=== PATIENT | male | born 1995 | race Caucasian/White ===

== ENCOUNTER 2024-01-10 06:34 | Inpatient (IN) | payer SELFPAY ==
[2024-01-10] VITALS (29 sets, daily range): BP systolic 99–134; BP diastolic 48–86; PULSE 18–91; RESP 12–28; TEMP 36.5–36.8; O2SAT 95–100; BMI 21.8
--- NOTE | ~2024-01-10 | CT_ITS ---
EXAMINATION: CT HEAD WITHOUT CONTRAST CT CERVICAL SPINE WITHOUT CONTRAST CLINICAL INFORMATION: Altered mental status . Trauma. COMPARISON: None TECHNIQUE: Contiguous axial imaging was performed from the skull base to vertex without intravenous administration of contrast. Contiguous axial imaging was performed from the upper chest through the skull base without intravenous administration of contrast. Coronal and sagittal reformats were obtained at the acquisition workstation. This CT examination was performed using dose optimization techniques as appropriate, variously including the following: *Automated exposure control *Adjustment of mA and/or kV according to patient size (this includes techniques or standardized protocols for targeted exams where dose is matched to indication/reason for exam; i.e. extremities or head) *Use of iterative reconstruction technique DLP: 987 mGy-cm FINDINGS: Head: There is no evidence of acute intracranial hemorrhage or edematous territorial infarction. Padron-white matter differentiation appears preserved. The ventricles are normal in morphology and size. No evidence for obstructive hydrocephalus. No abnormal mass effect or midline shift. No extra-axial fluid collections. No acute soft tissue or osseous abnormalities. Minimal mucosal thickening of ethmoid air cells. Otherwise the visualized paranasal sinuses and mastoids are well-aerated. Cervical Spine: The atlantooccipital and atlantoaxial articulations remain well aligned. Normal cervical lordosis. Otherwise, there is anatomic alignment of the vertebral bodies and posterior elements. No evidence of acute fracture or subluxation. The vertebral body heights and disc spaces are maintained. There is no prevertebral soft tissue swelling. The thyroid gland and remaining cervical soft tissues are within normal limits. The lung apices demonstrate mild paraseptal emphysematous changes. CT/CT cervical spine wo IV con IMPRESSION: 1. No acute intracranial pathology. 2. No acute fracture or traumatic subluxation involving the cervical spine. Electronically signed by: Fernandez Mackenzie MD 01/10/2024 02:35 PM EDT
--- NOTE | ~2024-01-10 | CT_ITS ---
EXAMINATION: CT CHEST, ABDOMEN AND PELVIS WITHOUT CONTRAST CLINICAL INFORMATION: trauma COMPARISON: No pertinent prior studies are available for comparison. TECHNIQUE: Multidetector volumetric imaging was performed from the thoracic inlet through the pubic symphysis without IV contrast. Sagittal and coronal reformatted images were obtained on the technologist's workstation. This CT examination was performed using dose optimization techniques as appropriate, variously including the following: *Automated exposure control *Adjustment of mA and/or kV according to patient size (this includes techniques or standardized protocols for targeted exams where dose is matched to indication/reason for exam; i.e. extremities or head) *Use of iterative reconstruction technique DLP: 281 plus 619 mGy-cm FINDINGS: CHEST: Lung: The lungs are clear without focal opacity or nodule. Mediastinum: The mediastinum is normal. Residual thymic tissue is present in the anterior mediastinum. The central vascular structures are unremarkable. No hilar or mediastinal lymphadenopathy. Pericardium/Pleura: No significant effusion. No pleural mass or thickening. Coronary artery calcium: None Chest Wall/Axilla: Unremarkable ABDOMEN/PELVIS: Peritoneal Space: No significant free air or free fluid identified. Liver, Gallbladder, Biliary Tree: The liver is normal in size, shape, and attenuation. No focal hepatic lesion or biliary ductal dilatation is present. The gallbladder is unremarkable with no evidence of radiopaque gallstones, gallbladder wall thickening, or obvious pericholecystic inflammatory changes. Pancreas: Unremarkable Spleen: Unremarkable Adrenal Glands: Unremarkable Kidneys and Ureters: The kidneys are normal in size, shape, and attenuation. No hydronephrosis, hydroureter, or calculi seen. No perinephric stranding. Bladder: Unremarkable Gastrointestinal Tract: The small and large bowel are unremarkable. The appendix is not identified but there is no evidence of appendicitis. Abdominal Wall: No significant hernia is appreciated. Lymph Nodes: No large adenopathy, but the exam is limited by lack of oral contrast, IV contrast and retroperitoneal fat. Vascular: The aorta appears normal.. The IVC appears unremarkable. PELVIC VISCERA: The prostate and seminal vesicles are unremarkable. OSSEUS STRUCTURES: Unremarkable without evidence of traumatic osseous injury. CT/CT abdomen pelvis wo IV con IMPRESSION: No evidence of traumatic injury in the chest, abdomen or pelvis. Fleischner guidelines were followed. Electronically signed by: Pedro Luis Chopra MD 01/10/2024 03:03 PM EDT RP
[2024-01-10] MEDS: Haloperidol Lactate 5 MG/ML VIAL 10 MG IM (06:40)
[2024-01-10] MEDS: LORazepam 2 MG/ML VIAL 4 MG IM (06:40)
--- NOTE | 2024-01-10 06:53 | PC.NURSE ---
Medicated @ 0640 and placed into physical restraints by security. Pt moved into room 2.
--- NOTE | 2024-01-10 07:04 | ED_ITS ---
HPI - General Adult General Chief complaint: ETOH/Substance Use Stated complaint: drug use Time Seen by Provider: 01/10/24 06:36 Source: EMS and police Mode of arrival: EMS Limitations: altered mental status History of Present Illness ED Provider: Dr. Garcia HPI narrative: Patients roommate called and police and EMS found the patient agitated and thrashing Onset (ago): unknown Related Data Allergies Allergy/AdvReac Type Severity Reaction Status Date / Time No Known Allergies Allergy Verified 01/10/24 06:43 Review of Systems Review of Systems: Yes all other systems are reviewed and are negative Neurologic: Denies Sensory deficit (Neuro) Physical Exam ED Vital Signs: Vital Signs - 24 hr 01/10/24 06:43 Pulse Rate 18 L BMI result Body Mass Index 21.8 Const Other: Cachectic male unkept, agitated thrashing Limitations: altered mental status HENMT Head: Yes normal to inspection Ears: external ears normal General nose exam: Normal external nose present Mouth: Normal oral and palatal mucosa present and oropharynx normal Throat: Yes posterior oropharynx normal Eyes General: appearance normal, both eyes and all related structures Neck Neck: Yes normal visual inspection Chest Chest palpation & inspection: normal inspection of the chest Resp Auscultation: clear to auscultation bilaterally Cardio Other: tachycardia Jugular venous distension: no JVD Rate: regular rate Rhythm: regular rhythm Heart sounds: S1 normal heart sound present and S2 normal heart sound present GI Inspection: Yes normal to inspection Palpation (GI): Soft to palpation, nontender and No hepatosplenomegaly present Auscultation: normal bowel sounds General: Yes no CVA tenderness Back/Spine/Pelvis Back: no CVA tenderness Skin General skin exam: no rashes or lesions noted Neuro Cranial nerves: Yes CN's II-XII intact bilaterally Motor exam (neuro): 5/5 motor strength present throughout Sensory Exam: No Sensory deficit (Neuro) Extrem General: Yes normal to inspection Psych Other: altered thrashing Course Reevaluation(s) Reevaluation #1: upon arrival patient had a face to face, altered agitated swinging arms and legs, threat to himself and others Time: 07:09 Reevaluation #2: I re evaluated the patient and he needs to remain in restraints as he is still a threat to self and others Time: 07:22 Reevaluation #3: I spent 40 minutes of critical care, with interventions, assessments, speaking to patient, consultants, and family. Time: 07:25 Medications Administered Discontinued Medications Generic Name Dose Route Start Last Admin Trade Name Ashanti PRN Reason Stop Dose Admin Haloperidol Lactate 10 mg 01/10/24 06:37 01/10/24 06:40 Haloperidol Lactate 5 Mg/Ml Vial IM 01/10/24 06:38 10 mg STAT STA Administration Lorazepam 4 mg 01/10/24 06:37 01/10/24 06:40 Lorazepam 2 Mg/Ml Vial IM 01/10/24 06:38 4 mg STAT STA Administration Medical Decision Making Differential Diagnosis Differential Diagnoses: The differential diagnosis associated with the presentation includes (polysubstance abuse, intoxicated, agitation) Admission/Observation Consideration of admission/observation: Escalation of care including admission/observation considered (upon arrival patient considered for admission) Independent Historian Clinical information obtained from an independent historian. History obtained from or confirmed by: EMS and Other (police) Tests considered The following testing was considered but not selected: CT of brain: his level of consciousness is felt to be secondary to his drug abuse Social Determinants Patient?s care significantly limited by Social Determinants of Health including: Low income and Alcoholism and drug addiction in family Discharge Plan Discharge Clinical Impression: Polysubstance abuse, Agitation Patient Disposition: Still a Patient Print Language: Belarusian
[2024-01-10] MEDS: droPERidol 5 MG/2 ML VIAL 2.5 MG IM (08:25)
[2024-01-10] MEDS: LORazepam 2 MG/ML VIAL IM (08:25)
[2024-01-10] MEDS: diphenhydrAMINE HCL 50 MG/ML VIAL IM (08:25)
[2024-01-10] MEDS: Ketamine HCl 500 MG/5 ML VIAL 244.94 MG IM (10:25)
[2024-01-10] MEDS: 0.9 % Sodium Chloride 1,000 ML 999 ML IVCONT ×2 (10:39→12:09)
--- NOTE | 2024-01-10 10:39 | PC.NURSE ---
IV/labs able to be obtained. IV fluid hung.
[2024-01-10 10:42] LABS: MANUAL DIFF FLAG NO
[2024-01-10 10:44] LABS: Basophils Percent Auto 0.1 % (0-2); Hematocrit 42.2 % (42.0-52.0); Hemoglobin 14.3 g/dl (14.0-18.0); Imm Gran Abs Auto 0.02 X10*3/uL (0.00-0.03); Imm Gran Pct Auto 0.3 % (0.0-0.4); Lymphocytes Percent Auto 13.4 % (20-40); Mean Corpuscular HGB Conc 33.9 g/dl (31.0-36.0); Mean Corpuscular Hemoglobin 27.9 pg (27.0-33.0); Mean Corpuscular Volume 82.4 fL (80.0-98.0); Mean Platelet Volume 9.6 fL (9.4-12.4); Monocytes Absolute Auto 0.7 X10*3/uL (0.1-1.2); Monocytes Percent Auto 8.8 % (2-11); Neutrophils Absolute Auto 5.9 x10*3/uL (2.0-8.3); Neutrophils Percent Auto 77.4 % (45-73); Platelet Count 159 X10*3/uL (160-400); Red Blood Count 5.12 X10*6/uL (4.60-5.80); Red Cell Distribution Width 13.4 % (11.0-16.0); White Blood Count 7.6 X10*3/uL (4.8-10.8)
--- NOTE | 2024-01-10 10:48 | PC.NURSE ---
Pt straight catheterized for urine sample, pt must of been incontinent prior to straight cath - no urine output.
--- NOTE | 2024-01-10 10:56 | MHC.EDTECH ---
All Belonging are locked in [place] 15 Minute check is still ongoing plan of care ongoing
[2024-01-10 10:57] LABS: Ethanol < 10 mg/dL
[2024-01-10 11:06] LABS: Alanine Aminotransferase 63 U/L (0-40); Albumin Level 4.4 g/dL (3.5-5.0); Alkaline Phosphatase 65 U/L (39-117); Anion Gap 11 (12-20); Aspartate Amino Transferase 117 U/L (5-37); Bilirubin Total 0.7 mg/dL (0.0-1.0); Blood Urea Nitrogen 12 mg/dL (9-16); Calcium 9.4 mg/dL (8.4-10.2); Carbon Dioxide 24 mmol/L (22-29); Chloride 109 mmol/L (96-108); Creatinine Clr Calc Pharmacy 124.3; Estimated Glomerular Filt Rate > 60; Glucose Random 107 mg/dL (60-115); Potassium 3.2 mmol/L (3.3-5.1); Sodium 141 mmol/L (135-145); Total Protein 7.5 g/dL (6.5-8.0)
--- NOTE | 2024-01-10 11:57 | PC.NURSE ---
Pt taken to CT with RN escort.
[2024-01-10] MEDS: 0.9 % Sodium Chloride 1,000 ML 999 ML IV (13:37)
--- NOTE | 2024-01-10 15:31 | P.HPHOSP_ITS ---
History of Present Illness Date of Service: 01/10/24 Chief Complaint: Altered mental status A 28-year-old male with no known past medical history was found unresponsive in an apartment in [place], suspected of overdosing. EMS administered Narcan, after which the patient regained consciousness but became erratic, agitated, and combative. Upon arrival at the ED, he required sedation with Benadryl 50mg, Haldol 15 mh, droperidol 2.5 mg, Ativan 6 mg, and eventually ketamine 244 mg. He is currently somnolent but was briefly rousable with a sternal rub, providing his name and confirming he's from [place], though he was unable to give further details. Efforts to collect a urine sample were unsuccessful as he has been incontinent, and a subsequent bladder scan showed an empty bladder. Labs are notable for rhabdomyolysis with a CPK > 5000 and hypokalemia (K+ 3.2), negative alcohol Review of Systems 2 Review of Systems: Yes Unobtainable due to mental status PMFSH Social History Advance Directives: No Advance Directives Information Provided: No Meds Allergies Allergy/AdvReac Type Severity Reaction Status Date / Time No Known Allergies Allergy Verified 01/10/24 06:43 Physical Exam 2 Vital Signs and Narrative: Vital Signs: Last Vital Signs Pulse 48 L 01/10/24 15:04 Resp 17 01/10/24 15:04 BP 125/81 01/10/24 15:04 Pulse Ox 98 01/10/24 15:04 O2 Del Method Room Air 01/10/24 15:04 BMI result Body Mass Index 21.8 Const: Other: General: somnolent, aroused with , no acute distress Resp: CTA bilateral CVS: S1,S2,RRR GI: +BS, NT, no distention Skin: No rash Neuro: motor grossly intact Psych: appropriate affect Results Labs 01/10/24 10:37 01/10/24 10:37 Labs: Laboratory Results - last 24 hr 01/10/24 01/10/24 10:37 14:45 MCV 82.4 MCH 27.9 MCHC 33.9 RDW 13.4 Plt Count 159 L MPV 9.6 Immature Gran % (Auto) 0.3 Neut % (Auto) 77.4 H Lymph % (Auto) 13.4 L [place] % (Auto) 8.8 Eos % (Auto) 0.0 Baso % (Auto) 0.1 Lymph # (Auto) 1.0 L [place] # (Auto) 0.7 Eos # (Auto) 0.0 Baso # (Auto) 0.0 Abs Immat Gran (auto) 0.02 Absolute Neuts (auto) 5.9 Absolute Nucleated RBC 0.000 Nucleated RBC % (auto) 0.0 Anion Gap 11 L Estim Creat Clear Calc 124.3 Estimated GFR > 60 Random Glucose 107 Calcium 9.4 Total Bilirubin 0.7 AST 117 H ALT 63 H Alkaline Phosphatase 65 Total Creatine Kinase 4862 H 5628 H Total Protein 7.5 Albumin 4.4 Ethyl Alcohol < 10 Imaging Radiologist's Impressions: Impressions Abdomen/Pelvis CT 01/10/24 11:51 IMPRESSION: No evidence of traumatic injury in the chest, abdomen or pelvis. Fleischner guidelines were followed. Electronically signed by: Pedro Luis Chopra MD 01/10/2024 03:03 PM EDT RP Cervical Spine CT 01/10/24 11:51 IMPRESSION: 1. No acute intracranial pathology. 2. No acute fracture or traumatic subluxation involving the cervical spine. Electronically signed by: Fernandez Mackenzie MD 01/10/2024 02:35 PM EDT RP Chest CT 01/10/24 11:51 IMPRESSION: No evidence of traumatic injury in the chest, abdomen or pelvis. Fleischner guidelines were followed. Electronically signed by: Pedro Luis Chopra MD 01/10/2024 03:03 PM EDT RP Head CT 01/10/24 11:51 IMPRESSION: 1. No acute intracranial pathology. 2. No acute fracture or traumatic subluxation involving the cervical spine. Electronically signed by: Fernandez Mackenzie MD 01/10/2024 02:35 PM EDT RP Assessment and Plan (1) Rhabdomyolysis: Status: Acute (2) Agitation: Status: Acute (3) Polysubstance abuse: Status: Acute Plan 28/m with altered mental status presumably d/t drug od, now with Delirium--d/t toxic ingestion -urine drug screen -will need addiction med consult Rhabdomylosis-d/t prolonged down time -IVF, and monitor BMP Transaminitis--check hep panel Hypokalemia--mild replace with IVF k dvt prophylaxis--low riks regular diet full code Quality Stroke Does the patient have a stroke diagnosis?: No VTE Prior VTE?: No VTE Risk Level:: Medical - low VTE Device Contraindication: Treatment Not Indicated VTE Drug Contraindication: Treatment Not Indicated
[2024-01-10] MEDS: KCl 20 mEq in 5% Dex/0.45% Sod 20 MEQ/1,000 ML IV.SOLN 150 MEQ IVCONT (16:34)
--- NOTE | 2024-01-10 16:44 | MHC.EDTECH ---
This pct assumed care of Patient at 1500 ,vitals taken ,Patient belongings list done ,Patient sleeping ,1 :1 sitter at bedside ,Patient sleeping ,all safety measure in place ,Plan of care continue .
--- NOTE | 2024-01-10 19:48 | MHC.EDTECH ---
1999 ,Rounding done ,Patient was awake for a few minutes and refused dinner ,Fell back asleep ,1: 1 sitter continue to be at bedside .Plan of care continue .
--- NOTE | 2024-01-10 20:45 | MHC.EDTECH ---
Patient awake void 1000 ml in urinal ,urine sample collected and sent to lab .
[2024-01-10 20:46] LABS: Amphetamine Screen Urine Not Detected (Not Detect); Barbiturates, Urine Not Detected (Not Detect); Benzodiazepines Screen Urine POSITIVE (Not Detect); Buprenorphine Scr Not Detected (Not Detect); Cannabinoid Screen Urine POSITIVE (Not Detect); Cocaine Screen Urine POSITIVE (Not Detect); Fentanyl, urine POSITIVE (Not Detect); Methadone Screen, Urine Not Detected (Not Detect); Opiate Screen Urine POSITIVE (Not Detect); Oxycodone Screen Urine Not Detected (Not Detect); Phencyclidine Screen Urine Not Detected (Not Detect)
--- NOTE | 2024-01-10 21:43 | HE.PHANOTE ---
RE: MED REC Tried to talk to patient multiple times but he was sleeping with blanket over his head. Leaving note for morning med rec team to follow up.
[2024-01-11] VITALS: BP 121/68; PULSE 83; RESP 16; TEMP 37.8; O2SAT 98
[2024-01-11] MEDS: KCl 20 mEq in 5% Dex/0.45% Sod 20 MEQ/1,000 ML IV.SOLN 150 MEQ IVCONT (00:39)
--- NOTE | 2024-01-11 01:05 | MHC.EDTECH ---
Patient woke up agitated ,wanted to go home ,food and drinks given ,RN aware of Patient wanting to go home .
[2024-01-11] MEDS: LORazepam 2 MG/ML VIAL IVPUSH (01:16)
[2024-01-11 04:00] VITALS: BP 97/64; PULSE 64; RESP 20; TEMP 37.1; O2SAT 98
[2024-01-11 04:49] LABS: Anion Gap 9 (12-20); Blood Urea Nitrogen 7 mg/dL (9-16); Calcium 8.7 mg/dL (8.4-10.2); Carbon Dioxide 22 mmol/L (22-29); Chloride 111 mmol/L (96-108); Estimated Glomerular Filt Rate > 60; Glucose Random 112 mg/dL (60-115); Potassium 3.6 mmol/L (3.3-5.1); Sodium 138 mmol/L (135-145)
--- NOTE | 2024-01-11 05:02 | PC.NURSE ---
Patient agitated and ripped out IV line. notified. MD also notified that patient wants to leave at this time. MD approved patient to sign AMA form and leave.
[2024-01-11 05:12] LABS: HBS Num1 62.76 mIU/mL (0-7.99); HBc Num1 0.22 S/CO (0.00-0.79); HBsAGNum1 0.26 S/CO (0.00-0.99); Hepatitis B Core Antibody Nonreactive (Nonreactive); Hepatitis B Surface Antigen Negative (Negative); ~HepC Num1 18.07 S/CO (0.00-0.79); ~Hepatitis B Surface Antibody REACTIVE (Nonreactive); ~Hepatitis C Antibody Reactive (Nonreactive)
[2024-01-11 05:34] VITALS: BP 0/0; PULSE 0; RESP 0; TEMP -17.7; TEMP 0
--- NOTE | 2024-01-11 06:25 | PM.EVENT ---
Event Note Date of Service: 01/11/24 Event Note: Was informed by the nurse that patient left against medical advice. He was awake, alert and oriented x4 and understood the risks of leaving including renal failure and/or . Time Spent With Patient Time: Total time managing care of this patient today ____ minutes.
--- NOTE | 2024-01-11 07:29 | PM.DS ---
DS: Providers Provider Date of Service: 01/11/24 Date of admission: 01/10/24 16:26 Date of discharge: 01/11/24 Primary care physician: Liane Physician Consults: 01/10/24 16:29 Addiction Medicine Routine Consulting Provider: Addiction Covering Reason for consultation: polysubstance abuse DS: Diagnosis Discharge Diagnosis (1) Rhabdomyolysis: Status: Acute (2) Agitation: Status: Acute (3) Polysubstance abuse: Status: Acute DS: Summary Hospital Course Hospital Course: Chief Complaint: Altered mental status A 28-year-old male with no known past medical history was found unresponsive in an apartment in [place], suspected of overdosing. EMS administered Narcan, after which the patient regained consciousness but became erratic, agitated, and combative. Upon arrival at the ED, he required sedation with Benadryl 50mg, Haldol 15 mh, droperidol 2.5 mg, Ativan 6 mg, and eventually ketamine 244 mg. He is currently somnolent but was briefly rousable with a sternal rub, providing his name and confirming he's from [place], though he was unable to give further details. Efforts to collect a urine sample were unsuccessful as he has been incontinent, and a subsequent bladder scan showed an empty bladder. Labs are notable for rhabdomyolysis with a CPK > 5000 and hypokalemia (K+ 3.2), negative alcohol Hospital course: He presented with overdose and became very agitated after narcan and requried heavy sedation as above. Drug screen was positive for opioid, fentanyl, marijuana, cocaine and benzos. Labs showed high CPK consistent with rhabdomylsis. He was admitted for further management but left early this morning against medical advise--I was not present at that time.. see addicational documentation elsewhere Final diagnoses: Delirium Polysubstance drug overdose Acute rhabdomylosis opioid dependence Time Attestation Discharge Coordination Time (in mins): 20 Quality: Safe Use of Opioids Does Pt have an Active Cancer Diagnosis on the Problem List?: No Quality: Stroke Does the patient have a stroke diagnosis?: No Physical Exam Vital Signs: Vital Signs: Last Vital Signs Temp 0 F L 01/11/24 05:34 Pulse 0 L 01/11/24 05:34 Resp 0 L 01/11/24 05:34 BP 0/0 L 01/11/24 05:34 Pulse Ox 98 01/11/24 04:00 O2 Del Method Room Air 01/11/24 04:00 BMI result Body Mass Index 21.8 DS: Data Data Completed and Pending Labs on day of discharge: Laboratory Results - last 24 hr 01/10/24 01/10/24 01/10/24 10:37 14:45 20:27 WBC 7.6 RBC 5.12 Hgb 14.3 Hct 42.2 MCV 82.4 MCH 27.9 MCHC 33.9 RDW 13.4 Plt Count 159 L MPV 9.6 Immature Gran % (Auto) 0.3 Neut % (Auto) 77.4 H Lymph % (Auto) 13.4 L [place] % (Auto) 8.8 Eos % (Auto) 0.0 Baso % (Auto) 0.1 Lymph # (Auto) 1.0 L [place] # (Auto) 0.7 Eos # (Auto) 0.0 Baso # (Auto) 0.0 Abs Immat Gran (auto) 0.02 Absolute Neuts (auto) 5.9 Absolute Nucleated RBC 0.000 Nucleated RBC % (auto) 0.0 Sodium 141 Potassium 3.2 L Chloride 109 H Carbon Dioxide 24 Anion Gap 11 L BUN 12 Creatinine 0.78 Estim Creat Clear Calc 124.3 Estimated GFR > 60 Random Glucose 107 Calcium 9.4 Total Bilirubin 0.7 AST 117 H ALT 63 H Alkaline Phosphatase 65 Total Creatine Kinase 4862 H 5628 H Total Protein 7.5 Albumin 4.4 Urine Opiates Screen POSITIVE H Ur Buprenorphine Scrn Not Detected Ur Oxycodone Screen Not Detected Urine Methadone Screen Not Detected Urine Fentanyl Screen POSITIVE H Ur Barbiturates Screen Not Detected Ur Phencyclidine Scrn Not Detected Ur Amphetamines Screen Not Detected U Benzodiazepines Scrn POSITIVE H Urine Cocaine Screen POSITIVE H U Marijuana (THC) Screen POSITIVE H Ethyl Alcohol < 10 Hep Bs Antigen Hep Bs Antibody Hep B Core Total Ab Hepatitis C Ab (EIA) 01/11/24 03:53 WBC RBC Hgb Hct MCV MCH MCHC RDW Plt Count MPV Immature Gran % (Auto) Neut % (Auto) Lymph % (Auto) [place] % (Auto) Eos % (Auto) Baso % (Auto) Lymph # (Auto) [place] # (Auto) Eos # (Auto) Baso # (Auto) Abs Immat Gran (auto) Absolute Neuts (auto) Absolute Nucleated RBC Nucleated RBC % (auto) Sodium 138 Potassium 3.6 Chloride 111 H Carbon Dioxide 22 Anion Gap 9 L BUN 7 L Creatinine 0.74 Estim Creat Clear Calc 131.0 Estimated GFR > 60 Random Glucose 112 Calcium 8.7 D Total Bilirubin AST ALT Alkaline Phosphatase Total Creatine Kinase Total Protein Albumin Urine Opiates Screen Ur Buprenorphine Scrn Ur Oxycodone Screen Urine Methadone Screen Urine Fentanyl Screen Ur Barbiturates Screen Ur Phencyclidine Scrn Ur Amphetamines Screen U Benzodiazepines Scrn Urine Cocaine Screen U Marijuana (THC) Screen Ethyl Alcohol Hep Bs Antigen Negative Hep Bs Antibody REACTIVE Hep B Core Total Ab Nonreactive Hepatitis C Ab (EIA) Reactive H Discharge Plan Discharge Patient Disposition: Left Against Medical Advice Discharge Diagnosis: Polysubstance overdose, delirium, rhabdomylosis Referrals: Physician,Unknown J [Primary Care Provider] - 1 Week Discharge Orders: Discharge Order (Routine); Ordered 01/11/24 Ordered By: Isaac Damon Stand Alone Forms: Against Medical Advice Print Language: Slovenian Care Plan Goals: abstinence from drugs Health Concerns: polysbustance abuse Plan of Treatment: left ama Assessment: left ama
--- NOTE | 2024-01-11 09:02 | MHC.CM.PN ---
PT LEFT AMA PRIOR TO BEING SEEN BY CM
== END 2024-01-11 16:45 | disposition left against medical advice (07) | DRG 918 ==
LOC: HO.ED 11:43 → HO.EDOVER 16:33
PROVIDERS: Emergency Medicine; Admitting Provider Internal Medicine; Emergency Provider Student in an Organized Health Care Education/Training Program; Visit Provider Internal Medicine
DX: T50.911A Poisoning by multiple unspecified drugs, medicaments and biological substances, accidental (unintentional), initial encounter (principal); M62.82 Rhabdomyolysis; F11.20 Opioid dependence, uncomplicated; F05 Delirium due to known physiological condition; F19.10 Other psychoactive substance abuse, uncomplicated; E87.6 Hypokalemia
CPT/HCPCS: 36415; 70450; 71250; 72125; 74176; 80048; 80053; 80307; 82550; 85025; 86704; 86706; 86803; 87340; 92950; 99285; J1200; J1630; J1790; J2060; J3480

== ENCOUNTER → 2024-01-10 10:02 | Outpatient (BNV) | payer SELFPAY | PROVIDERS: Emergency Provider Student in an Organized Health Care Education/Training Program; Visit Provider Internal Medicine | DX: M62.82 Rhabdomyolysis (principal); R45.1 Restlessness and agitation; F19.10 Other psychoactive substance abuse, uncomplicated; Z53.29 Procedure and treatment not carried out because of patient's decision for other reasons | CPT/HCPCS: 99223; 99238 ==

== ENCOUNTER 2024-01-14 09:21 | Emergency (ER) | payer SELFPAY ==
[2024-01-14 09:57] VITALS: BP 110/64; PULSE 62; RESP 16; TEMP 36; O2SAT 100; BMI 22.6
--- NOTE | 2024-01-14 16:29 | ED_ITS ---
HPI - General Adult General Chief complaint: General Medical Stated complaint: Medical clearance Time Seen by Provider: 01/14/24 16:29 Source: patient, RN notes reviewed and old records reviewed Mode of arrival: ambulatory History of Present Illness ED Provider: Niki Latham PA-C [facility] narrative: 28-year-old male with past medical history of polysubstance abuse, recently admitted to our facility on 01/09 s/p toxic ingestion and rhabdomyolysis, left AMA on 01/10, presenting to the ED for work clearance. States his job requires a letter stating he go back to work. Denies symptoms at present, denies EtOH or drug use. Denies abdominal pain, nausea/vomiting, dysuria/hematuria, discolored urine, CP/SOB. Related Data Allergies Allergy/AdvReac Type Severity Reaction Status Date / Time No Known Allergies Allergy Verified 01/14/24 09:58 Review of Systems 2 Review of Systems: Yes all other systems are reviewed and are negative Constitutional: Constitutional: Reports as per [facility] Past Medical History Attestation statement: The following information was validated with the patient. Source: old records reviewed Social History Social History Advance Directives: No Advance Directives Information Provided: No Physical Exam ED Vital Signs: Vital Signs - 24 hr 01/14/24 09:57 01/14/24 17:53 Temperature 96.8 F 98.3 F Pulse Rate 62 61 Respiratory Rate 16 18 Blood Pressure 110/64 107/63 Pulse Oximetry 100 100 Oxygen Delivery Method Room Air Room Air BMI result Body Mass Index 22.6 Const General: cooperative, healthy appearing and no acute distress Orientation/consciousness: patient oriented x3 Limitations: no limitations HENMT Head: Yes normal to inspection and Yes atraumatic Ears: hearing grossly normal bilaterally General nose exam: Normal external nose present Face and sinus: Yes normal facial exam Eyes General: appearance normal, both eyes and all related structures EOM: EOMs intact bilaterally Neck Neck: Yes normal visual inspection and Yes no meningeal signs Resp Effort & Inspection: normal respiratory effort and no respiratory distress Auscultation: clear to auscultation bilaterally Cardio Rate: regular rate Heart sounds: S1 normal heart sound present and S2 normal heart sound present GI Inspection: Yes normal to inspection Palpation (GI): Soft to palpation, nontender, no guarding and not rigid Skin Rashes: no rashes Wounds: no wounds Neuro General: patient oriented x3, tone normal and no meningeal signs Cranial nerves: Yes CN's II-XII intact bilaterally Gait exam (Neuro): Normal gait present Extrem General: Yes normal to inspection Course Course Course Narrative: -mild improvement in transaminitis -CPK still elevated however improved from prior, down from 7,253 on 01/10 to now 2,581 >> discussed with patient continued rhabdomyolysis. Recommend he stays extremely hydrated. Recommended admission for IVF however patient declined. Patient aware of risks of RODOLFO/renal failure and -tox screen positive for opiates, fentanyl, cocaine, marijuana -COVID-19 positive > will not be cleared to return to work at this time Results discussed with patient including worrisome signs and symptoms and strict return precautions, and when to return to the emergency department. They verbalized understanding and feel safe for discharge at this time. Medical Decision Making Medical Decision Making [facility] Narrative: 28-year-old male with past medical history of polysubstance abuse, recently admitted to our facility on 01/09 s/p toxic ingestion and rhabdomyolysis, left AMA on 01/10, presenting to the ED for work clearance. On exam vital signs stable, NAD, nontoxic appearing, asymptomatic at present. Concern for polysubstance use vs continued rhabdomyolysis vs viral illness. No evidence of compartment syndrome at this time. Rule out RODOLFO / renal failure Plan: Labs, UA, tox screen Please refer to course for remaining clinical decision making, interpretation of labs/imaging results, and discussions with consultants and/or family members. Differential Diagnosis Differential Diagnoses: The differential diagnosis associated with the presentation includes As above Admission/Observation Consideration of admission/observation: Escalation of care including admission/observation considered Lab Data [facility] Lab Attestation statement: I reviewed the patient's lab results. 01/14/24 16:49 01/14/24 16:49 Labs: Lab Results 01/14/24 01/14/24 01/14/24 Range/Units 16:49 17:50 17:51 WBC 7.1 (4.8-10.8) X10*3/uL RBC 4.90 (4.60-5.80) X10*6/uL Hgb 13.7 L (14.0-18.0) g/dl Hct 41.9 L (42.0-52.0) % MCV 85.5 (80.0-98.0) fL MCH 28.0 (27.0-33.0) pg MCHC 32.7 (31.0-36.0) g/dl RDW 13.8 (11.0-16.0) % Plt Count 182 (160-400) X10*3/uL MPV 10.1 (9.4-12.4) fL Immature Gran % (Auto) 0.3 (0.0-0.4) % Neut % (Auto) 43.9 L (45-73) % Lymph % (Auto) 39.2 (20-40) % [place] % (Auto) 11.0 (2-11) % Eos % (Auto) 5.3 H (0-4) % Baso % (Auto) 0.3 (0-2) % Lymph # (Auto) 2.8 (1.2-4.9) X10*3/uL [place] # (Auto) 0.8 (0.1-1.2) X10*3/uL Eos # (Auto) 0.4 (0.0-0.4) X10*3/uL Baso # (Auto) 0.0 (0.0-0.2) X10*3/uL Abs Immat Gran (auto) 0.02 (0.00-0.03) X10*3/uL Absolute Neuts (auto) 3.1 (2.0-8.3) x10*3/uL Absolute Nucleated RBC 0.000 (0.0-0.012) X10*3/uL Nucleated RBC % (auto) 0.0 (0.0-0.2) /100WBC Sodium 140 (135-145) mmol/L Potassium 4.3 (3.3-5.1) mmol/L Chloride 102 (96-108) mmol/L Carbon Dioxide 29 (22-29) mmol/L Anion Gap 13 (12-20) BUN 9 (9-16) mg/dL Creatinine 0.77 (0.5-1.4) mg/dL Estim Creat Clear Calc 130.7 Estimated GFR > 60 Random Glucose 87 (60-115) mg/dL Calcium 9.6 D (8.4-10.2) mg/dL Magnesium 2.1 (1.6-2.6) mg/dL Total Bilirubin 0.3 (0.0-1.0) mg/dL Direct Bilirubin 0.1 (0.0-0.5) mg/dL AST 68 H (5-37) U/L ALT 59 H (0-40) U/L Alkaline Phosphatase 62 (39-117) U/L Total Creatine Kinase 2581 H (38-174) U/L Total Protein 7.4 (6.5-8.0) g/dL Albumin 4.1 (3.5-5.0) g/dL Urine Color Yellow Urine Appearance Clear Urine pH 6.5 (5.0-9.0) Ur Specific [place] 1.025 (1.005-1.025) Urine Protein Negative (Neg-Trace) mg/dL Urine Glucose (UA) Negative (Negative) mg/dL Urine Ketones Negative (Negative) mg/dL Urine Blood Negative (Negative) Urine Nitrite Negative (Negative) Ur Leukocyte Esterase Negative (Negative) Urine Opiates Screen POSITIVE H (Not Detect) Ur Buprenorphine Scrn Not Detected (Not Detect) ng/mL Ur Oxycodone Screen Not Detected (Not Detect) ng/mL Urine Methadone Screen Not Detected (Not Detect) ng/mL Urine Fentanyl Screen POSITIVE H (Not Detect) Ur Barbiturates Screen Not Detected (Not Detect) Ur Phencyclidine Scrn Not Detected (Not Detect) Ur Amphetamines Screen Not Detected (Not Detect) U Benzodiazepines Scrn Not Detected (Not Detect) Urine Cocaine Screen POSITIVE H (Not Detect) U Marijuana (THC) Screen POSITIVE H (Not Detect) Influenza Type A (PCR) NEGATIVE (Negative) Influenza Type B (PCR) NEGATIVE (Negative) RSV RNA Qual (PCR) NEGATIVE (Negative) SARS-CoV-2 RNA (RT-PCR) POSITIVE A (Negative) Radiology Impression Discussion of test interpretation with radiology: I have reviewed the radiologist's reading. External Record Review External record reviewed: Inpatient record, Office record, Outpatient record, Prior outpatient labs, Prior outpatient radiology, Primary care record and Outside ED record Tests considered The following testing was considered but not selected: As above Chronic Conditions Patient?s care impacted by: Other Social Determinants Patient?s care significantly limited by Social Determinants of Health including: Low income, Alcoholism and drug addiction in family, Problems related to primary support group, Problems related to employment and Other Social Determinant of Health Discharge Plan Discharge Clinical Impression: Rhabdomyolysis, COVID-19 Patient Disposition: Home, Self-Care Referrals: ED Physician,Generic [Physician] - Print Language: Pashto
[2024-01-14 16:54] LABS: MANUAL DIFF FLAG NO
[2024-01-14 16:59] LABS: Basophils Percent Auto 0.3 % (0-2); Eosinophils Absolute Auto 0.4 X10*3/uL (0.0-0.4); Eosinophils Percent Auto 5.3 % (0-4); Hematocrit 41.9 % (42.0-52.0); Hemoglobin 13.7 g/dl (14.0-18.0); Imm Gran Abs Auto 0.02 X10*3/uL (0.00-0.03); Imm Gran Pct Auto 0.3 % (0.0-0.4); Lymphocytes Absolute Auto 2.8 X10*3/uL (1.2-4.9); Lymphocytes Percent Auto 39.2 % (20-40); Mean Corpuscular HGB Conc 32.7 g/dl (31.0-36.0); Mean Corpuscular Volume 85.5 fL (80.0-98.0); Mean Platelet Volume 10.1 fL (9.4-12.4); Monocytes Absolute Auto 0.8 X10*3/uL (0.1-1.2); Neutrophils Absolute Auto 3.1 x10*3/uL (2.0-8.3); Neutrophils Percent Auto 43.9 % (45-73); Platelet Count 182 X10*3/uL (160-400); Red Cell Distribution Width 13.8 % (11.0-16.0); White Blood Count 7.1 X10*3/uL (4.8-10.8)
[2024-01-14 17:12] LABS: Alanine Aminotransferase 59 U/L (0-40); Albumin Level 4.1 g/dL (3.5-5.0); Alkaline Phosphatase 62 U/L (39-117); Anion Gap 13 (12-20); Aspartate Amino Transferase 68 U/L (5-37); Bilirubin Direct 0.1 mg/dL (0.0-0.5); Bilirubin Total 0.3 mg/dL (0.0-1.0); Blood Urea Nitrogen 9 mg/dL (9-16); Calcium 9.6 mg/dL (8.4-10.2); Carbon Dioxide 29 mmol/L (22-29); Chloride 102 mmol/L (96-108); Creatinine Clr Calc Pharmacy 130.7; Estimated Glomerular Filt Rate > 60; Glucose Random 87 mg/dL (60-115); Magnesium 2.1 mg/dL (1.6-2.6); Potassium 4.3 mmol/L (3.3-5.1); Sodium 140 mmol/L (135-145); Total Protein 7.4 g/dL (6.5-8.0)
[2024-01-14 17:30] LABS: Influenza A PCR NEGATIVE (Negative); Influenza B PCR NEGATIVE (Negative); Resp Syncy Virus RNA Qual PCR NEGATIVE (Negative); SARS COV2 PCR INHOUSE POSITIVE (Negative)
[2024-01-14 17:53] VITALS: BP 107/63; PULSE 61; RESP 18; TEMP 36.8; O2SAT 100
[2024-01-14 18:00] LABS: Appearance Urine Clear; Color Urine Yellow; Glucose Urine UA Negative (Negative); Leukocyte Esterase Urine Negative (Negative); Nitrite Urine Negative (Negative); PH 6.5 (5.0-9.0); Specific Gravity - Urine 1.025 (1.005-1.025); Urine Blood Negative (Negative); Urine Ketones Negative (Negative); Urine Protein Negative (Neg-Trace)
[2024-01-14 18:06] LABS: Amphetamine Screen Urine Not Detected (Not Detect); Barbiturates, Urine Not Detected (Not Detect); Benzodiazepines Screen Urine Not Detected (Not Detect); Buprenorphine Scr Not Detected (Not Detect); Cannabinoid Screen Urine POSITIVE (Not Detect); Cocaine Screen Urine POSITIVE (Not Detect); Fentanyl, urine POSITIVE (Not Detect); Methadone Screen, Urine Not Detected (Not Detect); Opiate Screen Urine POSITIVE (Not Detect); Oxycodone Screen Urine Not Detected (Not Detect); Phencyclidine Screen Urine Not Detected (Not Detect)
[2024-01-14 18:33] VITALS: BP 107/63; PULSE 61; RESP 18; TEMP 36.8; O2SAT 100
== END 2024-01-14 18:34 | disposition home or self-care (01) ==
PROVIDERS: Physician Assistant; Emergency Provider Emergency Medicine
DX: U07.1 COVID-19 (principal); M62.82 Rhabdomyolysis; F19.10 Other psychoactive substance abuse, uncomplicated
CPT/HCPCS: 0241U; 80048; 80076; 80307; 81003; 82550; 83735; 85025; 99283

== ENCOUNTER 2024-06-05 15:57 | Emergency (ER) | payer MEDICAID, SELFPAY ==
[2024-06-05 16:20] VITALS: BP 145/94; PULSE 62; O2SAT 100
--- NOTE | 2024-06-05 16:23 | PC.NURSE ---
pt chitra'susan by provider on EMS stretcher, determined to be clinically sober, a&ox4, vss, ambulated out of ED w a steady gait prior to bed assignment.
--- NOTE | 2024-06-05 16:46 | PC.NURSE ---
DAHLIA paperwork signed.
--- OUTSIDE RECORDS SUMMARY | 2024-06-05 16:51 | XMS_ITS | Encounter Summary ---
Author Organization [facility] Address [address] [place] [id number] Phone Care Team Providers Care Manufacturing Assistant Name Role Phone Karin Bond MD Primary Care Provider [phone] Encounter Details Date Type Department Care Team (Late st Contact Info) Description 10/23/2013 Conversion Encounter [facility] - [address] [id number] Social History Tobacco Use Types Packs/Day Years Used Date Smoking Tobacco: Never Assessed Sex and Gender Information Value Date Recorded Sex Assigned at Not on file Legal Sex Male 6:39 PM EDT Gender Identity Not on file Sexual Orientation Not on file documented as of this encounter Plan of Treatment Not on file documented as of this encounter Visit Diagnoses Not on filedocumented in this encounter Care Teams Manufacturing Assistant Relationship Specialty Start Date End Date Karin Bond MD [address] [place] [address] PCP - General 08/22/17 documented as of this encounter
--- OUTSIDE RECORDS SUMMARY | 2024-06-05 16:51 | XMS_ITS | Clinical Summary ---
Author Organization [facility] Address [address] [place], [place] [id number] Phone Care Team Providers Care Green Energy Marketing Analyst Name Role Phone Karin Bond MD Primary Care Provider [phone] Immunizations Immunization Administration Dates Next Due DTaP 04/03/2002, 0,07/13/1998,05/12,02/09/1998 DTaP 5 04/03/2002, 0,07/13/1998,05/12,02/09/1998 Hep B, ped/adol 05/18/2004, 5,12/13/1998,10/13,01/11/1998,01/11/1998,1997 ,1997 Hib (PRP-T) 04/24/2000, 1,05/12/1998,05/12,02/09/1998,02/09/1998 IPV 04/03/2002, 2,01/06/1999,01/06,05/12/1998,05/12/1998,02/09/1998 ,02/09/1998 Influenza 04/11/2005,03/03/2005 Influenza, injectable, triva lent, preservative free 04/11/2005,03/03/2005 MMR 05/04/2003, 4,04/24/2000,04/24 Meningococcal Conj (Menactra) MCV4P 11/25/2009,0 11/25/2009 PPD Test 10/27/2013 Tdap 11/25/2009,11/25/2009 Varicella 09/18/2007, 8,01/06/1999,01/06 Social History Tobacco Use Types Packs/Day Years Used Date Smoking Tobacco: Every Day Comments:Current Everyday Sm oker Sex and Gender Information Value Date Recorded Sex Assigned at Not on file Legal Sex Male 6:39 PM EDT Gender Identity Not on file Sexual Orientation Not on file Last Filed Vital Signs Vital Sign Reading Time Taken Comments Blood Pressure 118/71 02/19/2013 12:00 AM EST Pulse 94 07/19/2015 4:03 PM EDT Temperature 38.2 ??C (100.8 ??F) 07/19/2015 4:03 PM E DT Respiratory Rate - - Oxygen Saturation 98% 07/19/2015 4:03 PM EDT Inhaled Oxygen Concentration - - Weight 68.1 kg (150 lb 3.2 oz) 07/19/2015 4:03 P M EDT Height 166.4 cm (5' 5.5 ) 07/19/2015 4:03 PM EDT Body Mass Index 24.61 07/19/2015 4:03 PM EDT Plan of Treatment Health Maintenance Due Date Last Done Comments HPV Vaccines (1 - Male 3-dose series) 2012 DTaP,Tdap,and Td Vaccines (8 - Td or Tdap) 11/26/2019 11/25/2009, 11/25/2009, 04/03/2002, Additional history exists Influenza Vaccines (#1) 2023 04/11/20, 04/11/2005, 03/03/2005, Additional history exists COVID-19 Vaccine ( season) 2023 HIB Vaccines Completed 04/24/2000, 12/2000, 05/12/1998, Additional history exists IPV Vaccines Completed 04/03/2002, 03/16, 01/06/1999, Additional history exists MMR Vaccines Completed 05/04/2003, 04/16, 04/24/2000, Additional history exists Hepatitis B Vaccines Completed 05/18/2004, 05/18/2004, 12/13/1998, Additional history exists Varicella Vaccines Completed 09/18/2007, 0 09/18/2007, 01/06/1999, Additional history exists Meningococcal Vaccine Aged Out 11/25/2009, 010 No longer eligible based on patient's age to complete this topic Hepatitis A Vaccines Aged Out No long er eligible based on patient's age to complete this topic Men B Vaccine Aged Out No longer elig ible based on patient's age to complete this topic Pneumococcal Vaccine Aged Out No long er eligible based on patient's age to complete this topic Care Teams Green Energy Marketing Analyst Relationship Specialty Start Date End Date Karin Bond MD [address] [place] [address] PCP - General 08/22/17
--- OUTSIDE RECORDS SUMMARY | 2024-06-05 16:51 | XMS_ITS | Encounter Summary ---
Author Organization [facility] Address [address] [place] [phone] Phone Care Team Providers Care Deputy Sheriff Name Role Phone Karin Bond MD Primary Care Provider [phone] Encounter Details Date Type Department Care Team (Late st Contact Info) Description 11/22/2016 Conversion Encounter [facility] - [address], [address] [place] [address] David Urbina MD [address] [place] [address] Social History Tobacco Use Types Packs/Day Years [...] on filedocumented in this encounter Care Teams Deputy Sheriff Relationship Specialty Start Date End Date Karin Bond MD [address] [place] [id number] PCP - General 08/22/17 documented as of this encounter
--- NOTE | 2024-06-05 17:33 | ED.GENADULT ---
HPI - General Adult General Stated complaint: OD Time Seen by Provider: 06/05/24 16:18 Source: patient, EMS and RN notes reviewed Mode of arrival: EMS Limitations: no limitations History of Present Illness ED Provider: Nghia HPI narrative: 28-year-old male presents for evaluation of a reported accidental overdose. The patient reports that he took ecstasy around 12 noon EMS were called because the patient was unresponsive. PD arrived 1st and administered Narcan 8 mg intranasally. The patient reportedly immediately woke up This was around 3:30 p.m. The patient reports that he did not intend to use any opiates and was not in any to harm himself The patient arrives awake alert and oriented, he was requesting to leave against medical advice. Denies any depression or suicidal ideation Related Data Allergies Allergy/AdvReac Type Severity Reaction Status Date / Time No Known Allergies Allergy Verified 01/14/24 09:58 Review of Systems Constitutional: Constitutional: Denies chills, Denies fever(s) and Denies headache(s) ENT: Denies vertigo and Denies headache(s) Cardiovascular: Cardiovascular: Denies chest pain Integumentary/Breasts: Skin/Breast: Denies rash Neurologic: Denies vertigo and Denies headache(s) Psychiatric: Psychiatric: Denies anxiety, Denies depression and Denies suicidal ideation PMFSH Social History Social History Advance Directives: No Advance Directives Information Provided: No Physical Exam ED Const General: healthy appearing, comfortable, no acute distress, alert and awake Nutritional Appearance: well nourished Orientation/consciousness: patient oriented x3 HENMT Head: Yes normocephalic and Yes atraumatic Eyes Eyelids: Yes eyelids normal Conjunctivae: conjunctivae normal Sclerae: sclerae normal Corneas: corneas normal Pupils: Equal, round and reactive pupils present EOM: EOMs intact bilaterally Neck Neck: Yes full ROM Resp Effort & Inspection: normal respiratory effort, able to speak in complete sentences and not labored Skin General skin exam: elasticity normal Neuro General: patient oriented x3 Cranial nerves: Yes CN's II-XII intact bilaterally, Yes Equal, round and reactive pupils present and Yes Bilaterally intact EOM present Cognition (Neuro): normal cognition Extrem Other: Moving all extremities well without any obvious deformities Medical Decision Making Medical Decision Making MDM Narrative: 28-year-old male presents for evaluation of a reported overdose. Apparently he was found in the community unresponsive after using substances that he believed to be extra see. He responded to Narcan. He has been on the EMS stretcher for about 35 minutes before requesting to leave against medical advice. I was asked to evaluate the patient, he was awake, alert and oriented, he appears well, there are no signs of trauma. Vital signs are stable. He answers every question appropriately and accurately. I explained the risks and benefits of leaving prior to complete evaluation and observation. The patient verbalized the understanding of the risks and benefits up to and including and would still like to leave against medical advice Differential Diagnosis Differential Diagnoses: The differential diagnosis associated with the presentation includes Overdose Accidental overdose Syncope Substance abuse Discharge Plan Discharge Clinical Impression: Accidental overdose Patient Disposition: Left Against Medical Advice Instructions: Adult Overdose (ED) Additional Instructions: You are leaving against medical advice. It is possible that whatever opiates are in your system can last longer than the Narcan in you can overdose again This could potentially permanent damage to your organs or even I recommend that you stay to be observed in the hospital for at least 2 hours Turned to the ER immediately if you have new or worsening symptoms Stand Alone Forms: Against Medical Advice Discharge Date/Time: 06/05/24 16:47 Print Language: Kinyarwanda
== END 2024-06-05 16:47 | disposition left against medical advice (07) ==
PROVIDERS: Emergency Provider Internal Medicine
DX: T43.641A Poisoning by ecstasy, accidental (unintentional), initial encounter (principal); Y92.9 Unspecified place or not applicable; R40.4 Transient alteration of awareness
CPT/HCPCS: 99283